=== PATIENT | female | born 1955 ===

== ENCOUNTER 2018-06-09 18:57 | Emergency (ER) | payer OTHER ==
[2018-06-09 19:21] VITALS: RESP 20
[2018-06-09] MEDS: Lidocaine 5% Patch TD STA (19:52)
[2018-06-09] MEDS ORDERED: Lidocaine 5% Patch TD ONE (20:05)
--- NOTE | 2018-06-09 21:23 | C.PDOC ---
History Of Present Illness 62 y/o female presents to the ER complaining of low back pain which began in the morning today. Patient states that the pain radiates to the right hip and the posterior leg. Patient reports that she has history of similar pain but the current pain is more severe. Denies having bowel/bladder incontinence, dysuria, and hematuria. Time Seen by Provider: 06/09/18 19:25 Chief Complaint (Nursing): Back Pain History Per: Patient History/Exam Limitations: no limitations Onset/Duration Of Symptoms: Days Current Symptoms Are (Timing): Still Present Severity: Moderate Past Medical History Reviewed: Historical Data, Nursing Documentation, Vital Signs Vital Signs: Last Vital Signs Temp 98.7 F 06/09/18 19:14 Pulse 72 06/09/18 19:14 Resp 20 06/09/18 19:14 BP 178/85 H 06/09/18 19:14 Pulse Ox 100 06/09/18 19:14 - Medical History PMH: No Chronic Diseases Surgical History: No Surg Hx Family History: States: No Known Family Hx - Social History Hx Alcohol Use: No Hx Substance Use: No Review Of Systems Except As Marked, All Systems Reviewed And Found Negative. Genitourinary: Negative for: Dysuria, Incontinence, Hematuria Musculoskeletal: Positive for: Back Pain Physical Exam - Physical Exam Appears: Non-toxic, No Acute Distress Skin: Normal Color, Warm, Dry Head: Atraumatic, Normacephalic Eye(s): bilateral: Normal Inspection Nose: Normal Oral Mucosa: Moist Neck: Supple Chest: Symmetrical Cardiovascular: Rhythm Regular Respiratory: Normal Breath Sounds, No Rales, No Rhonchi, No Wheezing Gastrointestinal/Abdominal: Normal Exam, Soft, No Tenderness, No Guarding, No Rebound Back: Other (lumbar and paraspinal tenderness) Extremity: Normal ROM, Tenderness (tenderness to right posterior thigh) Neurological/Psych: Oriented x3, Normal Speech ED Course And Treatment O2 Sat by Pulse Oximetry: 100 (RA) Pulse Ox Interpretation: Normal Progress Note: F-Iaa-Xbetik Spine ordered. Patient treated with Toradol IM, Valium PO, Prednisone PO, and Lidoderm Patch. On re-evaluation patient feels better, ambulatory, no neuro deficit. Patient is stable to be d/c home with PMD/Clinic follow up. Disposition - Disposition Disposition: HOME/ ROUTINE Disposition Time: 21:48 Condition: IMPROVED Additional Instructions: Follow up with PMD within 1-2 days. Return to ED if feel worse. Prescriptions: Lidocaine 1 each TP DAILY #15 adh..patch Ibuprofen [Motrin Tab] 400 mg PO Q8 #30 tab predniSONE [predniSONE Tab] 2 tab PO DAILY #8 tab traMADol [Ultram] 50 mg PO Q6 #10 tab diaZEpam [Valium] 2 mg PO TID #15 tab Instructions: Sciatica (DC), Sciatica Exercises Forms: [id number] (Maltese) Print Language: AZERI - Clinical Impression Clinical Impression: Sciatica - PA / GROUP PRESIDENT / Resident Statement MD/DO has reviewed & agrees with the documentation as recorded. - Scribe Statement The provider has reviewed the documentation as recorded by the Carl James Provider Attestation All medical record entries made by the Carl were at my direction and personally dictated by me. I have reviewed the chart and agree that the record accurately reflects my personal performance of the history, physical exam, medical decision making, and the department course for this patient. I have also personally directed, reviewed, and agree with the discharge instructions and disposition.
[2018-06-09 22:14] VITALS: BP 152/90; PULSE 88; TEMP 98.2
[2018-06-09 22:32] VITALS: O2SAT 100
--- NOTE | 2018-06-10 08:33 | RAD ---
Date of service: 06/09/2018 PROCEDURE: Radiographs of the Lumbar Spine. HISTORY: right sciatica COMPARISON: No prior. FINDINGS: BONES: There is approximately 4 to 5 mm anterior subluxation of L5 relative to S1-a pars interarticularis defect is question. There is some L4-5 bilateral facet hypertrophic arthrosis also present which can contribute to ligamentous laxity and subluxation. No vertebral body fracture appreciated. Minimal endplate spondylosis at L5-S1 noted. Probable trace right sclerotic inferior SI joint arthrosis iliac sided present. Stool retention. DISC SPACES: Unremarkable. OTHER FINDINGS: None. IMPRESSION: No vertebral body fracture seen. Approximately 5 mm anterior subluxation-L5 on S1 given the degree of facet hypertrophy noted-a spondylolysis is suspect. Consider bilateral oblique views lumbosacral spine images for further evaluation. Other findings as above.
== END 2018-06-09 22:12 | disposition home or self-care (01) ==
LOC: C.ER 18:57
DX: M54.30 Sciatica, unspecified side (principal)
CPT/HCPCS: 72100; 96372; 99283; J1885